=== PATIENT | female | born 2000 | race Caucasian/White ===

== ENCOUNTER 2020-08-13 10:01 | Emergency (ER) | payer MEDICAID, OTHER ==
[~2020-08-13] VITALS: Ht 154.9 cm; Wt 41.3 kg
[2020-08-13 10:44] LABS: COLOR,URINE YELLOW
[2020-08-13 10:45] LABS: BILIRUBIN,URINE 1+ (NEGATIVE); CLARITY,URINE CLEAR; GLUCOSE, URINE (UA) NEGATIVE (NEGATIVE); KETONES,URINE 3+ (NEGATIVE); NITRITE,URINE NEGATIVE (NEGATIVE); PROTEIN,URINE NEGATIVE (NEGATIVE)
[2020-08-13 10:46] LABS: BACTERIA,URINE FEW /HPF; LEUKOCYTE ESTERASE ,URINE TRACE (NEGATIVE); WBC,URINE RARE /HPF
[2020-08-13] MEDS ORDERED: ONDANSETRON 4 MG (ZOFRAN) ORAL DISSOLVE TAB PO STA (11:10)
--- NOTE | 2020-08-13 12:19 | ED GU-Female ---
General Chief Complaint: Female Reproductive Stated Complaint: ABD PAIN Nursing Triage Note: Patient presents to ED reporting severe abd pain and recently diagnosed as . Pt had pain begin around 08/11 and is worsening. Pt reports slight brownish discharge History of Present Illness Date Seen by Provider: Aug 13, 2020 Time Seen by Provider: 10:15 Initial Comments 19-year-old G2, P1 with last menstrual period June 16 and positive test last week, presents with abdominal pain for the past 2 days. Intermittent, cramping without any vaginal bleeding or vaginal discharge. No other symptoms, cough, fever. Some associated nausea. Allergies and Home Medications Allergies Coded Allergies: No Known Allergies (Verified Allergy, Unknown, 08/13/20) Patient Home Medication List Home Medication List Reviewed: Yes Review of Systems Review of Systems Constitutional: No chills, No dizziness, No fever, No malaise Respiratory: no symptoms reported Cardiovascular: see HPI Gastrointestinal: abdominal pain; No loss of appetite; nausea; No vomiting Genitourinary: see HPI; denies dysuria, denies frequency, denies flank pain; pain; denies urgency Musculoskeletal: No back pain, No joint pain Skin: No change in color, No rash Past Xovvlbb-Aoboqh-Ktoyts Hx Patient Social History Tobacco Use?: Yes Tobacco type used: Cigarettes Smoking Status: Current Everyday Smoker Smokeless Tobacco Frequency: Current Everyday User Use of E-Cig and/or Vaping dev: No Substance use?: No Alcohol Use?: No Pt feels they are or have been: No Past Medical History Surgery/Hospitalization HX: no significant PMH/PSH contributed Last Menstrual Period: June 16, 2020 Physical Exam Vital Signs Vital Signs - First Documented 08/13/20 10:10 Temp 37.6 Pulse 130 Resp 20 B/P (MAP) 99/64 (76) Pulse Ox 100 O2 Delivery Room Air Capillary Refill : Less Than 3 Seconds Height, Weight, BMI Height: '" Weight: lbs. oz. kg; 17.00 BMI Method: General Appearance: WD/WN, no apparent distress Cardiovascular: regular rate, rhythm, no edema, no gallop, no JVD Respiratory: chest non-tender, lungs clear, normal breath sounds, no respiratory distress, no accessory muscle use Gastrointestinal: normal bowel sounds, soft; No guarding, No rebound; tenderness (generalized) Back: normal inspection, no CVA tenderness Progress/Results/Core Measures Suspected Sepsis SIRS Temperature: Pulse: 130 Respiratory Rate: 20 Blood Pressure 99 /64 Mean: 76 Results/Orders Lab Results Laboratory Tests Test 08/13/20 10:15 08/13/20 10:30 Range/Units Urine Color YELLOW Urine Clarity CLEAR Urine pH 6.0 5-9 Urine Specific [place] >=1.030 1.016-1.022 Urine Protein NEGATIVE NEGATIVE Urine Glucose (UA) NEGATIVE NEGATIVE Urine Ketones 3+ H NEGATIVE Urine Nitrite NEGATIVE NEGATIVE Urine Bilirubin 1+ H NEGATIVE Urine Urobilinogen 0.2 < = 1.0 MG/DL Urine Leukocyte Esterase TRACE H NEGATIVE Urine RBC (Auto) NEGATIVE NEGATIVE Urine RBC NONE /HPF Urine WBC RARE /HPF Urine Squamous Epithelial Cells 2-5 /HPF Urine Crystals NONE /LPF Urine Bacteria FEW H /HPF Urine Casts NONE /LPF Urine Mucus SMALL H /LPF Urine Culture Indicated NO Human Chorionic Gonadotropin, Quant 95045 H <5 MIU/ML My Orders Orders - JAMEE ROMAN DO Urinalysis (08/13/20 10:14) Hcg,Quantitative (08/13/20 10:14) Ondansetron Oral Dissolve Tab (Zofran (08/13/20 11:10) Vital Signs/I&O 08/13/20 10:10 Temp 37.6 Pulse 130 Resp 20 B/P (MAP) 99/64 (76) Pulse Ox 100 O2 Delivery Room Air Capillary Refill : Less Than 3 Seconds Blood Pressure Mean: 76 Departure Impression Primary Impression: First trimester Additional Impression: Abdominal pain Qualified Codes: R10.84 - Generalized abdominal pain Disposition: 62 DISC/XFER TO IRF Condition: Stable Transfer Transfer Reason: Exceeds level of care Time Spoke to Accepting Phy: 12:09 Transfer Progress Notes ER to ER transfer because we did not have Ultrasound services available. Patients OB care will be at [place] ([facility]) which is a [facility] system. Patient and SO agree and understand plan to go directly to [facility] ER for an ultrasound study Departure-Patient Inst. Referrals: MAXIMILIANO ABDI APRN (PCP) Primary Care Physician [facility] (Family) Primary Care Physician JAMEE ROMAN DO Aug 13, 2020 12:19
[2020-08-13 13:00] VITALS: BP 98/59
== END 2020-08-13 13:00 ==
LOC: ER FS 10:04
DX: O26.891 Other specified pregnancy related conditions, first trimester (principal); R10.84 Generalized abdominal pain; F17.210 Nicotine dependence, cigarettes, uncomplicated; Z3A.00 Weeks of gestation of pregnancy not specified
CPT/HCPCS: 36415; 81000; 84702; 99283

== ENCOUNTER → 2021-03-24 | Outpatient (CLI) | payer MEDICAID ==
--- NOTE | 2021-03-24 18:19 | Diagnostic Imaging Report ---
INDICATION: Anatomic survey, . TECHNIQUE: Multiple real-time grayscale images were obtained over the gravid uterus. COMPARISON: None. FINDINGS: There is a single live intrauterine gestation in breech presentation. The cervix measures 5 cm and there is no endocervical fluid or funneling. The placenta is posterior and appears to at least partially, if not completely, cover the internal os. The placenta is otherwise unremarkable. Amniotic fluid and heart rate are normal. A four-chamber heart is seen. The right and left ventricular outflow tracts are seen. The profile is seen. The intracranial ventricles are seen. The ventricles measure 7 mm in diameter which is within normal limits. The cerebellum appears normal. The cisterna magna is normal. The cord insertion is normal. The kidneys appear normal. The umbilical arteries demonstrated a three-vessel cord. The bladder is seen. The nose and lips are seen. There are two upper extremities and two lower extremities. Biometrical measurements are as follows: Biparietal 4.21 cm, age 18 weeks 6 days. Head circumference 16.18 cm, age 19 weeks 0 days. Abdominal circumference 13.63 cm, age 19 weeks 1 days. Femur length 2.73 cm, age 18 weeks 3 days. Sonographic estimate age: 18 weeks 6 days. Sonographic estimated date of delivery: 08/19/2021. Estimated Weight: 256 gm (+/- 38 gm). LMP percentile: 14%. heart rate: 153 beats per minute. number: 1 of 1. IMPRESSION: 1. Single live intrauterine gestation measuring at 18 weeks and 6 days which is within range of the clinical dates of 19 weeks and 3 days. 2. No anatomic abnormality is seen. 3. At least partial, possibly complete, placenta previa. Recommend continued sonographic follow-up. 4. Breech presentation. Dictated by: Dictated on workstation # [id number]
== END ==
LOC: RAD 13:00
PROVIDERS: ATTEND Nurse Practitioner Women's Health
DX: O44.22 Partial placenta previa NOS or without hemorrhage, second trimester (principal); O32.1XX0 Maternal care for breech presentation, not applicable or unspecified; Z3A.18 18 weeks gestation of pregnancy
CPT/HCPCS: 76805

== ENCOUNTER 2021-04-04 11:16 | Emergency (ER) | payer MEDICAID ==
[~2021-04-04] VITALS: Ht 154.9 cm; Wt 41.3 kg
[2021-04-04 11:43] LABS: CLARITY,URINE CLOUDY; GLUCOSE, URINE (UA) NEGATIVE (NEGATIVE); KETONES,URINE 2+ (NEGATIVE); LEUKOCYTE ESTERASE ,URINE TRACE (NEGATIVE); NITRITE,URINE NEGATIVE (NEGATIVE); PH,URINE 6.5 (5-9); PROTEIN,URINE TRACE (NEGATIVE)
[2021-04-04 11:59] LABS: BACTERIA,URINE FEW /HPF
[2021-04-04 12:00] LABS: BILIRUBIN,URINE 1+ (NEGATIVE); URINE OTHER CLUE CELLS NOTED /HPF
[2021-04-04 12:01] LABS: COLOR,URINE DK YELLOW
--- NOTE | 2021-04-04 12:01 | ED GI ---
General Chief Complaint: Abdominal/GI Problems Stated Complaint: VOMITING; DIARRHEA Nursing Triage Note: Patient ambulatory to ED reporting N/V/D for 24 hours that is improving and also she is approx 20 week . Pt has Zofran ODT at home for morning sickness and has not used it. Source of Information: Patient Exam Limitations: No Limitations History of Present Illness Date Seen by Provider: Apr 04, 2021 Time Seen by Provider: 11:15 Initial Comments Patient is a 21-year-old, G3, P0, Ab1 estimated 20-week gestation female who presents with intermittent nausea vomiting and diarrhea for 24 hours with subjective fever. Patient last vomited 3 hours prior to ED arrival. She was able to drink and keep fluids down 30 minutes prior to arriving in the ER. Patient has Zofran ODT at home which she has not taken today. No dizziness lightheadedness chest pain palpitation shortness of breath or measured fever today. No abdominal cramping, vaginal bleeding or spotting. Denies complications with current . Patient is not on vitamins and currently smokes and is in the process of changing OBs. Timing/Duration: 24 Hours Severity/Quality: Other Location: Other Radiation: Other Activities at Onset: Other Modifying Factors: Improves With Other Associated Symptoms: Other Allergies and Home Medications Allergies Coded Allergies: No Known Allergies (Verified Allergy, Unknown, 08/13/20) Patient Home Medication List Home Medication List Reviewed: Yes Review of Systems Review of Systems Constitutional: see HPI EENTM: See HPI Respiratory: See HPI Cardiovascular: See HPI Gastrointestinal: See HPI Genitourinary: See HPI Musculoskeletal: see HPI Skin: see HPI Psychiatric/Neurological: See HPI Endocrine: See HPI Hematologic/Lymphatic: See HPI All Other Systems Reviewed Negative Unless Noted: Yes Past Ysqswpb-Esftxd-Agvrad Hx Patient Social History Tobacco Use?: Yes Tobacco type used: Cigarettes Smoking Status: Current Everyday Smoker Smokeless Tobacco Frequency: Current Everyday User Substance use?: No Alcohol Use?: No Pt feels they are or have been: No Past Medical History Surgery/Hospitalization HX: Appendectomy Expected Date of Delivery: Aug 15, 2021 Physical Exam Vital Signs Vital Signs - First Documented 04/04/21 11:23 Temp 37.3 Pulse 117 Resp 16 B/P (MAP) 112/65 (81) Pulse Ox 100 O2 Delivery Room Air Capillary Refill : Less Than 3 Seconds Height/Weight/BMI Height: '" Weight: lbs. oz. kg; 17.00 BMI Method: General Appearance: WD/WN, no apparent distress, mild distress HEENT: PERRL/EOMI, normal ENT inspection Respiratory: lungs clear Cardiovascular: regular rate, rhythm, no edema Gastrointestinal: non tender, soft Neurologic/Psychiatric: alert, oriented x 3 Focused Exam Sepsis Stage: Ruled Out Progress/Results/Core Measures Results/Orders Lab Results Laboratory Tests Test 04/04/21 11:40 04/04/21 12:15 Range/Units Urine Color DK YELLOW Urine Clarity CLOUDY Urine pH 6.5 5-9 Urine Specific [place] >=1.030 1.016-1.022 Urine Protein TRACE H NEGATIVE Urine Glucose (UA) NEGATIVE NEGATIVE Urine Ketones 2+ H NEGATIVE Urine Nitrite NEGATIVE NEGATIVE Urine Bilirubin 1+ H NEGATIVE Urine Urobilinogen 0.2 < = 1.0 MG/DL Urine Leukocyte Esterase TRACE H NEGATIVE Urine RBC (Auto) NEGATIVE NEGATIVE Urine RBC NONE /HPF Urine WBC 2-5 /HPF Urine Squamous Epithelial Cells 10-25 H /HPF Urine Crystals NONE /LPF Urine Bacteria FEW H /HPF Urine Casts NONE /LPF Urine Mucus LARGE H /LPF Urine Other CLUE CELLS NOTED /HPF Urine Culture Indicated NO White Blood Count 10.3 4.3-11.0 10^3/uL Red Blood Count 3.94 3.80-5.11 10^6/uL Hemoglobin 12.6 11.5-16.0 g/dL Hematocrit 36 35-52 % Mean Corpuscular Volume 91 80-99 fL Mean Corpuscular Hemoglobin 32 25-34 pg Mean Corpuscular Hemoglobin Concent 35 32-36 g/dL Red Cell Distribution Width 13.1 10.0-14.5 % Platelet Count 186 130-400 10^3/uL Mean Platelet Volume 9.5 9.0-12.2 fL Sodium Level 138 135-145 MMOL/L Potassium Level 3.7 3.6-5.0 MMOL/L Chloride Level 103 98-107 MMOL/L Carbon Dioxide Level 23 21-32 MMOL/L Anion Gap 12 5-14 MMOL/L Blood Urea Nitrogen 10 7-18 MG/DL Creatinine 0.59 L 0.60-1.30 MG/DL Estimat Glomerular Filtration Rate 131 BUN/Creatinine Ratio 17 Glucose Level 100 70-105 MG/DL Calcium Level 8.8 8.5-10.1 MG/DL Corrected Calcium 9.0 8.5-10.1 MG/DL Total Bilirubin 0.3 0.1-1.0 MG/DL Aspartate Amino Transf (AST/SGOT) 57 H 5-34 U/L Alanine Aminotransferase (ALT/SGPT) 79 H 0-55 U/L Alkaline Phosphatase 77 40-136 U/L Total Protein 6.3 L 6.4-8.2 GM/DL Albumin 3.7 3.2-4.5 GM/DL My Orders Orders - LONDON MORALES DO Ua Culture If Indicated (04/04/21 11:35) Ns Iv 1000 Ml (Sodium Chloride 0.9%) (04/04/21 12:15) Cbc No Diff (04/04/21 12:04) Comprehensive Metabolic Panel (04/04/21 12:04) Ondansetron Injection (Zofran Injectio (04/04/21 12:15) Medications Given in ED Current Medications Medications Dose Ordered Sig/Cheryle Route Start Time Stop Time Status Last Admin Dose Admin Ondansetron HCl 4 mg ONCE ONCE IVP 04/04/21 12:15 04/04/21 12:16 DC 04/04/21 12:20 4 MG Vital Signs/I&O 04/04/21 11:23 Temp 37.3 Pulse 117 Resp 16 B/P (MAP) 112/65 (81) Pulse Ox 100 O2 Delivery Room Air Blood Pressure Mean: 81 Departure Communication (Admissions) Ketones present in urine. IV fluids and antiemetics given with clinical improvement. heart tones noted in 140s will treat for bacterial vaginosis and continue outpatient therapy with OB follow-up. Return precautions reviewed. Impression Primary Impression: Nausea and vomiting Additional Impressions: Diarrhea Bacterial vaginosis in Disposition: HOME, SELF-CARE Condition: Stable Departure-Patient Inst. Decision time for Depature: 12:59 Referrals: BULMARO GUERRERO DO (PCP) Primary Care Physician Patient Instructions: Bacterial Vaginosis, Nausea and Vomiting, Adult (DC), Diarrhea, Adult ED Add. Discharge Instructions: Please go home and rest take Zofran for nausea and progressed to soft bland diet as tolerated. Take prescription medication for treatment of vaginal infection and follow-up with your OB as scheduled. Return to the ED if new or worsening symptoms. All discharge instructions reviewed with patient and/or family. Voiced understanding. Scripts Metronidazole (Nuvessa) 5 Gm Gel.w.appl 5 GM VG UD, #1 EA Prov: LONDON MORALES DO 04/04/21 LONDON MORALES DO Apr 04, 2021 12:01
[2021-04-04] MEDS ORDERED: ONDANSETRON 4 MG/2 ML (SDV) Z0FRAN IVP ONE (12:15)
[2021-04-04] MEDS: NS IV 1000 ML 1,000 ML IV SCH ×2 (12:20→12:50)
[2021-04-04 12:29] LABS: HEMATOCRIT 36 % (35-52); HEMOGLOBIN 12.6 g/dL (11.5-16.0); MEAN CORPUSCULAR HEMOGLOBIN 32 pg (25-34); MEAN CORPUSCULAR HGB CONC 35 g/dL (32-36); MEAN CORPUSCULAR VOLUME 91 fL (80-99); MEAN PLATELET VOLUME 9.5 fL (9.0-12.2); PLATELET COUNT 186 10^3/uL (130-400); WHITE BLOOD COUNT 10.3 10^3/uL (4.3-11.0)
[2021-04-04 12:53] LABS: POTASSIUM 3.7 MMOL/L (3.6-5.0)
[2021-04-04 12:54] LABS: BILIRUBIN,TOTAL 0.3 MG/DL (0.1-1.0); CALCIUM 8.8 MG/DL (8.5-10.1); CREATININE SERUM 0.59 MG/DL (0.60-1.30)
[2021-04-04 12:55] LABS: ALBUMIN 3.7 GM/DL (3.2-4.5); TOTAL PROTEIN 6.3 GM/DL (6.4-8.2)
[2021-04-04] MEDS ORDERED: [UNRECOGNIZED DRUG - CODE] VG (13:03)
[2021-04-04 13:30] VITALS: BP 112/61
== END 2021-04-04 13:30 | disposition home or self-care (01) ==
LOC: EDUNIT# 11:16 → ER FS 11:18
DX: O21.0 Mild hyperemesis gravidarum (principal); R19.7 Diarrhea, unspecified; O23.592 Infection of other part of genital tract in pregnancy, second trimester; F17.210 Nicotine dependence, cigarettes, uncomplicated; Z3A.20 20 weeks gestation of pregnancy
CPT/HCPCS: 36415; 80053; 81000; 85027

== ENCOUNTER → 2021-04-09 | Outpatient (CLI) | payer MEDICAID ==
[~2021-04-09] MED LIST: [UNRECOGNIZED DRUG - CODE] VG
== END ==
LOC: FS 15:37
PROVIDERS: ATTEND Family Medicine
DX: O09.92 Supervision of high risk pregnancy, unspecified, second trimester (principal); O44.02 Complete placenta previa NOS or without hemorrhage, second trimester; N39.0 Urinary tract infection, site not specified; N89.8 Other specified noninflammatory disorders of vagina; Z3A.21 21 weeks gestation of pregnancy
CPT/HCPCS: 87210

== ENCOUNTER → 2021-04-10 | Outpatient (CLI) | payer MEDICAID | LOC: LABNPT 14:59 | PROVIDERS: ATTEND Family Medicine | DX: N39.0 Urinary tract infection, site not specified (principal) | CPT/HCPCS: 87088 ==

== ENCOUNTER → 2021-04-10 | Outpatient (CLI) | payer MEDICAID | LOC: LABNPT 14:29 | PROVIDERS: ATTEND Family Medicine | DX: O99.891 Other specified diseases and conditions complicating pregnancy (principal); N89.8 Other specified noninflammatory disorders of vagina; Z3A.21 21 weeks gestation of pregnancy | CPT/HCPCS: 87491; 87591 ==

== ENCOUNTER → 2021-05-30 | Outpatient (CLI) | payer MEDICAID ==
[2021-05-30 14:28] LABS: HEMATOCRIT 34 % (35-52); HEMOGLOBIN 11.8 g/dL (11.5-16.0); MEAN CORPUSCULAR HEMOGLOBIN 33 pg (25-34); MEAN CORPUSCULAR HGB CONC 35 g/dL (32-36); MEAN CORPUSCULAR VOLUME 93 fL (80-99); MEAN PLATELET VOLUME 9.5 fL (9.0-12.2); PLATELET COUNT 233 10^3/uL (130-400)
== END ==
LOC: LAB FS 13:39
PROVIDERS: ATTEND Family Medicine
DX: Z34.93 Encounter for supervision of normal pregnancy, unspecified, third trimester (principal); Z3A.30 30 weeks gestation of pregnancy
CPT/HCPCS: 36415; 82950; 85027; 86780; 86850